=== PATIENT | male | born 1970 | race Caucasian/White ===

== ENCOUNTER 2021-12-22 06:33 | Day surgery (SDC) | payer BC ==
[2021-12-18 11:59] VITALS: BMI 25.7
[~2021-12-22 06:33] MED LIST: LACTATED RINGERS 1,000 ML IV SCH; LIDOCAINE 1% (10MG/ML) FOR IV START INTRADERMA PRN
[2021-12-22 07:01] VITALS: RESP 16; TEMP 98.2
[2021-12-22 07:10] LABS: Glucose,Whole Blood 111 mg/dL (75-99)
[2021-12-22] MEDS ORDERED: PROPOFOL 10 MG/ML 20 ML VIAL IV ONE (07:31)
--- NOTE | 2021-12-22 07:33 | P.GSHP ---
History of Present Illness H&P Date: 12/22/21 CHIEF COMPLAINT: Colon screen HISTORY OF PRESENT ILLNESS: The patient is a 51-year-old male who presents for colon screen. Lower endoscopy was offered for further evaluation and management. PAST MEDICAL HISTORY: Please see list. PAST SURGICAL HISTORY: Please see list. MEDICATIONS: Please see list. ALLERGIES: Please see list. SOCIAL HISTORY: No illicit drug use FAMILY HISTORY: No reports of Crohn disease or ulcerative colitis. REVIEW OF ORGAN SYSTEMS: CONSTITUTIONAL: No reports of fevers or chills. PHYSICAL EXAM: VITAL SIGNS: Stable GENERAL: Well-developed pleasant in no acute distress. HEENT: No scleral icterus. Extraocular movements grossly intact. Moist buccal mucosa. NECK: Supple without lymphadenopathy. CHEST: Unlabored respirations. Equal bilateral excursions. CARDIOVASCULAR: Regular rate and rhythm. Distal 2+ pulses. ABDOMEN: Soft, nontender, nondistended. MUSCULOSKELETAL: No clubbing, cyanosis, or edema. ASSESSMENT: 1. Colon screen. PLAN: 1. Recommend proceeding with a lower endoscopy Past Medical History Past Medical History: Diabetes Mellitus History of Any Multi-Drug Resistant Organisms: None Reported Past Surgical History: No Surgical Hx Reported Past Anesthesia/Blood Transfusion Reactions: No Reported Reaction Smoking Status: Never smoker - Past Family History Mother Family Medical History: No Reported History Medications and Allergies Home Medications Medication Instructions Recorded Confirmed Type Empagliflozin [Jardiance] 25 mg PO DAILY 12/18/21 12/22/21 History Losartan [Cozaar] 25 mg PO DAILY 12/18/21 12/22/21 History Terbinafine [LamISIL] 250 mg PO DAILY 12/18/21 12/22/21 History metFORMIN HCL [Glucophage] 1,000 mg PO BID 12/18/21 12/22/21 History Allergies Allergy/AdvReac Type Severity Reaction Status Date / Time No Known Allergies Allergy Verified 12/22/21 06:54 Surgical - Exam Vital Signs Temp Pulse Resp BP Pulse Ox 98.2 F 86 16 148/94 100 12/22/21 06:56 12/22/21 06:56 12/22/21 06:56 12/22/21 06:56 12/22/21 06:56 Results - Labs Abnormal Lab Results - Last 24 Hours (Table) 12/22/21 Range/Units 07:05 POC Glucose (mg/dL) 111 H (75-99) mg/dL
[2021-12-22] MEDS ORDERED: IV FLUID CONTINUATION 1,000 ML IV ONE (07:50)
--- NOTE | 2021-12-22 07:53 | P.PCN ---
Date of Procedure: 12/22/21 Description of Procedure: PREOPERATIVE DIAGNOSIS: Colonoscopy screening POSTOPERATIVE DIAGNOSIS: Tubular adenoma hepatic flexure Tubular adenoma ascending colon Sigmoid diverticulosis OPERATION: Colonoscopy to the ileocecal valve and appendiceal orifice, cecum Colonoscopy with hot snare polypectomy SURGEON: Laxmi Maguire MD. ANESTHESIA: MAC. INDICATIONS: The patient is a 51-year-old male who presents for his first colonoscopy screening. Benefits and risks were described and informed consent was obtained. DESCRIPTION OF PROCEDURE: The patient had undergone Sutab prep. The patient had been brought into the operating room and laid in the left lateral decubitus position. After adequate intravenous sedation, the rectum was examined with 2% lidocaine jelly. The prostate was unremarkable. No external hemorrhoids were encountered. The rectal tone was within normal limits. No lesions were palpated in the rectal vault. An Olympus colonoscope was advanced until the cecum, ileocecal valve and appendiceal orifice were clearly viewed. The prep was good. Sigmoid diverticulosis was encountered. Colonic polyps were found and removed. No evidence of focal colitis was found. Retroflexion of the scope demonstrated grade 1 internal hemorrhoids without active bleeding or inflammation. The colon was desufflated. The patient had tolerated the procedure well. Withdrawal time was over 6 minutes. FINDINGS: Aronchick preparation quality scale 2 (1-5) Internal hemorrhoids, grade 1 No external hemorrhoids No arteriovenous malformations. Sigmoid diverticulosis Removal of 2 polyps: - Snare polypectomy 45 cm from the anal verge, 11 mm tubulovillous adenoma polyp, descending colon - Snare polypectomy hepatic flexure, 6 mm flat villous adenoma polyp. No focal colitis. RECOMMENDATIONS: Repeat colonoscopy in 2 years, 2023 due to high-risk colon adenomas Plan - Discharge Summary Discharge Rx Participant: No New Discharge Prescriptions: Continue metFORMIN HCL [Glucophage] 1,000 mg PO BID Terbinafine [LamISIL] 250 mg PO DAILY Empagliflozin [Jardiance] 25 mg PO DAILY Losartan [Cozaar] 25 mg PO DAILY Discharge Medication List Empagliflozin [Jardiance] 25 mg PO DAILY 12/18/21 [History] Losartan [Cozaar] 25 mg PO DAILY 12/18/21 [History] Terbinafine [LamISIL] 250 mg PO DAILY 12/18/21 [History] metFORMIN HCL [Glucophage] 1,000 mg PO BID 12/18/21 [History] Follow up Appointment(s)/Referral(s): Laxmi Maguire MD [STAFF PHYSICIAN] - 12/30/21 Patient Instructions/Handouts: Diverticulosis Diet (GEN), Diverticulosis (GEN), Colorectal Polyps (GEN) Activity/Diet/Wound Care/Special Instructions: Repeat colonoscopy in one year, 2022 Discharge Disposition: HOME SELF-CARE
[2021-12-22 08:10] VITALS: BP 137/91; PULSE 87
== END 2021-12-22 08:46 | disposition home or self-care (01) ==
LOC: ORWHC2ENDO 06:33
PROVIDERS: ATTEND Surgery Plastic and Reconstructive Surgery
DX: Z12.11 Encounter for screening for malignant neoplasm of colon (principal); D12.2 Benign neoplasm of ascending colon; D12.3 Benign neoplasm of transverse colon; K57.30 Diverticulosis of large intestine without perforation or abscess without bleeding; I10 Essential (primary) hypertension; K64.0 First degree hemorrhoids; E11.9 Type 2 diabetes mellitus without complications; Z79.84 Long term (current) use of oral hypoglycemic drugs; Z79.899 Other long term (current) drug therapy
CPT/HCPCS: 88305; 45385; J2704